=== PATIENT | female | born 1990 | race American Indian/Alaskan Native ===

== ENCOUNTER 2019-02-03 12:42 | Emergency (ER) | payer SELFPAY ==
[2019-02-03 13:13] VITALS: BP 130/88
--- NOTE | 2019-02-03 13:15 | Event Note ---
ED Screening Note Date of service: 02/03/19 Time: 13:11 ED Screening Note: This is a 28 y.o. F. that presents to the ER with SOB since this morning. PMH of asthma Patient states she ran out of inhaler and neb solution. LMP 12/19/2018 This initial assessment/diagnostic orders/clinical plan/treatment(s) is/are subject to change based on patients health status, clinical progression and re- assessment by fellow clinical providers in the ED. Further treatment and workup at subsequent clinical providers discretion. Patient/guardian urged not to elope from the ED as their condition may be serious if not clinically assessed and managed. Initial orders include:
[2019-02-03] MEDS ORDERED: IPRATROPIUM/ALBUTEROL SULFATE 3 ML AMPUL.NEB IH ONE (17:35)
[2019-02-03] MEDS ORDERED: dexAMETHasone 4 MG/ML VIAL IM ONE (17:35)
--- NOTE | 2019-02-03 18:06 | Emergency Department Report ---
ED Asthma HPI - General Chief Complaint: Dyspnea/Respdistress Stated Complaint: SOB/ASTHMA ATTACK Time Seen by Provider: 02/03/19 13:11 Source: patient Mode of arrival: Ambulatory Limitations: No Limitations - History of Present Illness Initial Comments: pt is a 28-year-old female presents the emergency room with complaints of an asthma exacerbation that began yesterday. States she ran out of her nebulizer solution and her inhaler yesterday. She states she has a dry cough. Patient denies any fever, productive cough, sore throat, earache, chest pain. She denies any other past medical history and denies any allergies to medications. She states she has a non-smoker. - Related Data Previous Rx's Medication Instructions Recorded Last Taken Type ALBUTEROL Inhaler (OR & NICU) 2 puff IH QID PRN #1 inhalation 02/03/19 Unknown Rx [ProAir HFA Inhaler] ALBUTEROL NEB's [Proventil 0.083% 2.5 mg IH TID PRN #1 box 02/03/19 Unknown Rx NEBS] ALBUTEROL Inhaler (OR & NICU) 2 puff IH QID PRN #1 inhalation 02/04/19 Unknown Rx [Proair] Azithromycin [Zithromax Z-LAUREANO] 0 mg PO DAILY #6 tab 02/04/19 Unknown Rx Benzonatate [Tessalon Perles] 100 mg PO Q8HR #30 capsule 02/04/19 Unknown Rx Ibuprofen [Motrin 800 MG tab] 800 mg PO Q8HR PRN #20 tablet 02/04/19 Unknown Rx traMADol [Ultram] 50 mg PO Q6HR PRN #10 tablet 02/04/19 Unknown Rx Allergies Allergy/AdvReac Type Severity Reaction Status Date / Time No Known Allergies Allergy Verified 02/03/19 20:56 ED Review of Systems ROS: Stated complaint: SOB/ASTHMA ATTACK Other details as noted in HPI Comment: All other systems reviewed and negative ED Past Medical Hx - Past Medical History Previous Medical History?: Yes Hx Asthma: Yes - Surgical History Past Surgical History?: No - Social History Smoking Status: Never Smoker Substance Use Type: None - Medications Home Medications: Home Medications Medication Instructions Recorded Confirmed Last Taken Type ALBUTEROL Inhaler (OR & NICU) 2 puff IH QID PRN #1 inhalation 02/03/19 Unknown Rx [ProAir HFA Inhaler] ALBUTEROL NEB's [Proventil 0.083% 2.5 mg IH TID PRN #1 box 02/03/19 Unknown Rx NEBS] ALBUTEROL Inhaler (OR & NICU) 2 puff IH QID PRN #1 inhalation 02/04/19 Unknown Rx [Proair] Azithromycin [Zithromax Z-LAUREANO] 0 mg PO DAILY #6 tab 02/04/19 Unknown Rx Benzonatate [Tessalon Perles] 100 mg PO Q8HR #30 capsule 02/04/19 Unknown Rx Ibuprofen [Motrin 800 MG tab] 800 mg PO Q8HR PRN #20 tablet 02/04/19 Unknown Rx traMADol [Ultram] 50 mg PO Q6HR PRN #10 tablet 02/04/19 Unknown Rx ED Physical Exam - General Limitations: No Limitations General appearance: alert, in no apparent distress - Head Head exam: Present: atraumatic, normocephalic - Eye Eye exam: Present: normal appearance - ENT ENT exam: Present: normal orophraynx, mucous membranes moist - Respiratory Respiratory exam: Present: wheezes (mild expiratory wheeze bilaterally). Absent : respiratory distress, rales, rhonchi, stridor, chest wall tenderness, accessory muscle use, decreased breath sounds, prolonged expiratory - Cardiovascular Cardiovascular Exam: Present: regular rate, normal rhythm, normal heart sounds. Absent: systolic murmur, diastolic murmur, rubs, gallop - Neurological Exam Neurological exam: Present: alert, oriented X3 - Psychiatric Psychiatric exam: Present: normal affect, normal mood - Skin Skin exam: Present: warm, dry, intact ED Course Vital Signs 02/03/19 02/03/19 13:11 18:32 Temperature 98.1 F Pulse Rate 82 Pulse Rate [ 82 Posterior Bilateral Throughout] Respiratory 18 Rate Respiratory 18 Rate [Posterior Bilateral Throughout] Blood Pressure 130/88 O2 Sat by Pulse 99 Oximetry ED Medical Decision Making - Medical Decision Making pt is a 28-year-old female presents the emergency room with complaints of an asthma exacerbation that began yesterday. States she ran out of her nebulizer solution and her inhaler yesterday. She states she has a dry cough. Patient denies any fever, productive cough, sore throat, earache, chest pain. She d enies any other past medical history and denies any allergies to medications. She states she has a non-smoker. vitals are normal. on exam: mild expiratory wheeze bilaterally, no rhonchi or rales. pt given duo neb and steroids and wheezing completely resolved and pts lung sounds are clear bilaterally. pt is afebrile no rhonchi or rales no signs of PNA or bronchitis. pt is afebrile, lungs are clear. Patient given prescription for nebulizer solution and an albuterol inhaler. given a list of community clinics and a good Rx card. advised patient to take medication as prescribed. follow up with a primary care doctor in the next 2-3 days. Return to the emergency room for any new or worsening symptoms. Critical care attestation.: If time is entered above; I have spent that time in minutes in the direct care of this critically ill patient, excluding procedure time. ED Disposition Clinical Impression: Asthma Qualifiers: Asthma severity: unspecified severity Asthma persistence: unspecified Asthma complication type: with acute exacerbation Qualified Code(s): J45.901 - Unspecified asthma with (acute) exacerbation Disposition: TO HOME OR SELFCARE Is pt being admited?: No Does the pt Need Aspirin: No Condition: Stable Instructions: Asthma (ED) Additional Instructions: take medication as prescribed. follow up with a primary care doctor in the next 2-3 days. Return to the emergency room for any new or worsening symptoms. Prescriptions: ALBUTEROL Inhaler (OR & NICU) [ProAir HFA Inhaler] 2 puff IH QID PRN #1 inhalation PRN Reason: Shortness Of Breath ALBUTEROL NEB's [Proventil 0.083% NEBS] 2.5 mg IH TID PRN #1 box PRN Reason: Wheezing Referrals: CONI TONEY MD [Primary Care Provider] - 2-3 Days [facility] [Outside] - 2-3 Days [facility] [Outside] - 2-3 Days Time of Disposition: 18:34 Print Language: SLOVAK
== END 2019-02-03 18:55 | disposition home or self-care (01) ==
LOC: ED 12:42
DX: J45.901 Unspecified asthma with (acute) exacerbation (principal); Z79.899 Other long term (current) drug therapy
CPT/HCPCS: 94644; 96372; 99282; J1100

== ENCOUNTER 2019-02-03 20:52 | Emergency (ER) | payer SELFPAY ==
--- NOTE | 2019-02-03 21:53 | Event Note ---
ED Screening Note Date of service: 02/03/19 Time: 21:52 ED Screening Note: This is a 28 y.o. F. that returns to the ER chest pain, SOB, and dizziness. Reports increasing dyspnea with exertion and palpitations. Patient states symptoms became worse after discharge. This initial assessment/diagnostic orders/clinical plan/treatment(s) is/are subject to change based on patients health status, clinical progression and re- assessment by fellow clinical providers in the ED. Further treatment and workup at subsequent clinical providers discretion. Patient/guardian urged not to elope from the ED as their condition may be serious if not clinically assessed and managed. Initial orders include: CXR
--- NOTE | 2019-02-03 22:22 | XRay Report ---
CHEST 1 VIEW INDICATION: chest pain, dyspnea. COMPARISON: None. FINDINGS: Support devices: None. Heart: Within normal limits. Lungs/Pleura: No acute air space or interstitial disease. Additional findings: None. IMPRESSION: No acute abnormality. Signer Name: Hari Man MD Signed: 02/03/2019 10:18 PM Workstation Name: [id number]
[2019-02-03] MEDS ORDERED: ALBUTEROL 2.5 MG/3 ML NEBU IH ONE (23:18)
[2019-02-03] MEDS ORDERED: KETOROLAC 30 MG/1 ML INJ IV ONE (23:18)
--- NOTE | 2019-02-03 23:23 | Emergency Department Report ---
HPI - General Chief Complaint: Dyspnea/Respdistress Time Seen by Provider: 02/03/19 21:52 - HPI HPI: Room 5 The pt is a 28 y/o F p/w a cc of CP. The pt was seen in this ED several hours ago and treated for asthma exacerbation. The pt states after she was discharged she developed SSCP that increases with cough and occ with inpiration. Pt admits to SOB. Pt states her cough is productive of yellow sputum. Pt denies fever. ED Past Medical Hx - Past Medical History Hx Asthma: Yes - Surgical History Past Surgical History?: No - Family History Family history: no significant - Social History Smoking Status: Never Smoker Substance Use Type: None - Medications Home Medications: Home Medications Medication Instructions Recorded Confirmed Last Taken Type ALBUTEROL Inhaler (OR & NICU) 2 puff IH QID PRN #1 inhalation 02/03/19 Unknown Rx [ProAir HFA Inhaler] ALBUTEROL NEB's [Proventil 0.083% 2.5 mg IH TID PRN #1 box 02/03/19 Unknown Rx NEBS] ALBUTEROL Inhaler (OR & NICU) 2 puff IH QID PRN #1 inhalation 02/04/19 Unknown Rx [Proair] Azithromycin [Zithromax Z-LAUREANO] 0 mg PO DAILY #6 tab 02/04/19 Unknown Rx Benzonatate [Tessalon Perles] 100 mg PO Q8HR #30 capsule 02/04/19 Unknown Rx Ibuprofen [Motrin 800 MG tab] 800 mg PO Q8HR PRN #20 tablet 02/04/19 Unknown Rx traMADol [Ultram] 50 mg PO Q6HR PRN #10 tablet 02/04/19 Unknown Rx ED Review of Systems ROS: Stated complaint: SOB Other details as noted in HPI Constitutional: denies: fever Eyes: denies: eye pain ENT: denies: throat pain Respiratory: cough, shortness of breath Cardiovascular: chest pain Endocrine: no symptoms reported Gastrointestinal: denies: abdominal pain Genitourinary: denies: dysuria Musculoskeletal: myalgia Neurological: denies: headache Physical Exam - Physical Exam Vital Signs: Vital Signs 02/03/19 02/03/19 02/03/19 20:58 21:58 23:05 Temperature 98.9 F 98.9 F 98.1 F Pulse Rate 68 68 80 Respiratory 22 18 12 Rate Blood Pressure 140/85 Blood Pressure 140/85 130/73 [Right] O2 Sat by Pulse 99 100 97 Oximetry Physical Exam: GEN: WD WN F lying on stretcher in NAD HEENT: EOMI NECK: Trachea midline LUNGS: No resp Distress. CTA CV: RRR no m/r/g ABD: S/NT/ND SKIN: No Diaphoresis NEURO: GCS 15 MS: no evidence of acute injury ED Course Vital Signs 02/03/19 02/03/19 02/03/19 20:58 21:58 23:05 Temperature 98.9 F 98.9 F 98.1 F Pulse Rate 68 68 80 Respiratory 22 18 12 Rate Blood Pressure 140/85 Blood Pressure 140/85 130/73 [Right] O2 Sat by Pulse 99 100 97 Oximetry ED Medical Decision Making - Lab Data Result diagrams: 02/03/19 22:49 02/03/19 22:49 Laboratory Tests 02/03/19 02/03/19 02/03/19 22:49 22:49 23:26 WBC 12.1 H RBC 3.92 Hgb 12.7 Hct 35.6 MCV 91 MCH 33 H MCHC 36 H RDW 13.8 Plt Count 442 H Seg Neutrophils % Measuring Clerk D-Dimer 330.84 H Sodium 139 Potassium 3.5 L Chloride 105.1 Carbon Dioxide 22 Anion Gap 15 BUN 6 L Creatinine 0.7 Estimated GFR > 60 BUN/Creatinine Ratio 9 Glucose 112 H Calcium 8.8 Total Creatine Kinase CK-MB (CK-2) CK-MB (CK-2) Rel Index Troponin T HCG, Qual 02/03/19 02/03/19 23:26 23:26 WBC RBC Hgb Hct MCV MCH MCHC RDW Plt Count Seg Neutrophils % D-Dimer Sodium Potassium Chloride Carbon Dioxide Anion Gap BUN Creatinine Estimated GFR BUN/Creatinine Ratio Glucose Calcium Total Creatine Kinase 162 H CK-MB (CK-2) < 1.0 CK-MB (CK-2) Rel Index 0.6 Troponin T < 0.010 HCG, Qual Negative - EKG Data -: EKG Interpreted by Me EKG shows normal: sinus rhythm Rate: normal - EKG Data When compared to previous EKG there are: previous EKG unavailable Interpretation: normal EKG - Radiology Data Radiology results: report reviewed (CT Chest), image reviewed (Ct Chest) [facility] [address] [place] [address] Cat Scan Report Signed Patient: NATA CHILDERS MR#: [id number] : 1990 Acct:[id number] Age/Sex: 28 / F ADM Date: 02/03/19 Loc: ED Attending Dr: Ordering Physician: TAINA RUVALCABA MD Date of Service: 02/04/19 Procedure(s): CT angio chest Accession Number(s): [id number] cc: TAINA RUVALCABA MD CTA CHEST WITH C ONTRAST INDICATION / CLINICAL INFORMATION: CP, SOB. TECHNIQUE: Axial CT images were obtained through the chest after injection of 100 mL Omnipaque 350 IV contrast. 3 plane MIP and/or 3D reconstructions were produced. All CT scans at this location are performed using CT dose reduction for ALARA by means of automated exposure control. COMPARISON: None available. FINDINGS: PULMONARY ARTERIES: No pulmonary emboli. THORACIC AORTA: No significant abnormality. HEART: No significant abnormality. CORONARY ARTERIES: No significant calcification. MEDIASTINUM / LAURIE: No significant abnormality. PLEURA: No pleural effusion. No pneumothorax. LUNGS: No acute air space or interstitial disease. ADDITIONAL FINDINGS: None. UPPER ABDOMEN: Liver appears diffusely hypodense suggesting fatty infiltration. SKELETAL STRUCTURES: No significant osseous abnormality. IMPRESSION: 1. No CT evidence for pulmonary embolism. 2. No acute pulmonary or pleural findings. 3. Possible hepatic steatosis. Signer Name: Yesenia Moreno MD Signed: 02/04/2019 12:49 AM Workstation Name: [id number] Transcribed By: DT Dictated By: Cullen Moreno MD Electronically Authenticated By: Cullen Moreno MD Signed Date/Time: 02/04/1948 DD/ TD/TT: - Differential Diagnosis bronchitis, PNA, PE, ACS Critical care attestation.: If time is entered above; I have spent that time in minutes in the direct care of this critically ill patient, excluding procedure time. ED Disposition Clinical Impression: Asthma, Bronchitis Disposition: -01 TO HOME OR SELFCARE Is pt being admited?: No Does the pt Need Aspirin: No Condition: Stable Instructions: Asthma (ED), Chronic Bronchitis (ED) Prescriptions: Ibuprofen [Motrin 800 MG tab] 800 mg PO Q8HR PRN #20 tablet PRN Reason: Pain, Moderate (4-6) ALBUTEROL Inhaler (OR & NICU) [Proair] 2 puff IH QID PRN #1 inhalation PRN Reason: Shortness Of Breath Benzonatate [Tessalon Perles] 100 mg PO Q8HR #30 capsule traMADol [Ultram] 50 mg PO Q6HR PRN #10 tablet PRN Reason: Pain Azithromycin [Zithromax Z-LAUREANO] 0 mg PO DAILY #6 tab Referrals: [facility] [Outside] - 3-5 Days Time of Disposition: 01:00
[2019-02-03 23:34] LABS: BUN/Creatinine Ratio 9; Blood Urea Nitrogen 6 mg/dL (7-17); Calcium 8.8 mg/dL (8.4-10.2); Hemolysis Index 4
[2019-02-04 00:03] LABS: Creatine Kinase MB < 1.0 ng/mL (0.0-4.0)
[2019-02-04 00:07] LABS: Hematocrit 35.6 % (30.3-42.9); Hemoglobin 12.7 gm/dl (10.1-14.3); Mean Corpuscular HGB Conc 36 % (30-34); Mean Corpuscular Volume 91 fl (79-97); Platelet Count 442 K/mm3 (140-440); Red Blood Count 3.92 M/mm3 (3.65-5.03); Red Cell Distribution Width 13.8 % (13.2-15.2)
--- NOTE | 2019-02-04 00:54 | Cat Scan Report ---
CTA CHEST WITH CONTRAST INDICATION / CLINICAL INFORMATION: CP, SOB. TECHNIQUE: Axial CT images were obtained through the chest after injection of 100 mL Omnipaque 350 IV contrast. 3 plane MIP and/or 3D reconstructions were produced. All CT scans at this location are performed usin g CT dose reduction for ALARA by means of automated exposure control. COMPARISON: None available. FINDINGS: PULMONARY ARTERIES: No pulmonary emboli. THORACIC AORTA: No significant abnormality. HEART: No significant abnormality. CORONARY ARTERIES: No significant calcification. MEDIASTINUM / LAURIE: No significant abnormality. PLEURA: No pleural effusion. No pneumothorax. LUNGS: No acute air space or interstitial disease. ADDITIONAL FINDINGS: None. UPPER ABDOMEN: Liver appears diffusely hypodense suggesting fatty infiltration. SKELETAL STRUCTURES: No significant osseous abnormality. IMPRESSION: 1. No CT evidence for pulmonary embolism. 2. No acute pulmonary or pleural findings. 3. Possible hepatic steatosis. Signer Name: Yesenia Moreno MD Signed: 02/04/2019 12:49 AM Workstation Name: [id number]
[2019-02-04 01:14] LABS: Basophils % (Manual) 0 % (0.0-1.8); Eosinophils % (Manual) 0 % (0.0-4.3); Platelet Estimate Consistent w Auto; RBC Morphology Normal; Total Cells Counted 100
[2019-02-04 01:30] VITALS: BP 102/58
== END 2019-02-04 01:25 | disposition home or self-care (01) ==
LOC: ED 20:52
DX: J40 Bronchitis, not specified as acute or chronic (principal); J45.909 Unspecified asthma, uncomplicated; Z79.899 Other long term (current) drug therapy
CPT/HCPCS: 36415; 71045; 71275; 80048; 82550; 82553; 84484; 84703; 85007; 85025; 85379; 93005; 93010; 94644; 96374; 99284; J1885; Q9967

== ENCOUNTER 2019-02-04 23:22 | Emergency (ER) | payer SELFPAY ==
[2019-02-05] MEDS ORDERED: KETOROLAC 60 MG/2 ML INJ IM ONE (01:03)
--- NOTE | 2019-02-05 01:10 | Emergency Department Report ---
- General Chief Complaint: Dyspnea/Respdistress Stated Complaint: CHEST PAIN Time Seen by Provider: 02/05/19 00:41 Source: patient, EMS Mode of arrival: Ambulatory Limitations: No Limitations - History of Present Illness Initial Comments: Patient is a 28-year-old female who presents to emergency room with complaints of URI symptoms for the last 2 days. She states that she has associated cough, rhinorrhea, chest discomfort. Patient was brought in by EMS and EMS report states that she had a very slight wheeze and was given 2.5 mg of albuterol. She denies any shortness of breath currently. She denies any fever or sick contacts. Patient states she still just has some chest discomfort to the right upper chest. pt was evaluated in the emergency department twice yesterday for the same complaint. Her first visit she was treated for her asthma with an nebulizer treatment and an injection of dexamethasone and her asthma medications were refilled. Her second visit she had a CTA of the chest which was normal and an EKG which was normal and was given medications for acute bronchitis including pain medications, Zithromax, Tessalon Perles for her cough. Patient states that her only past medical history is asthma. Denies any allergies to medications. - Related Data Previous Rx's Medication Instructions Recorded Last Taken Type ALBUTEROL Inhaler (OR & NICU) 2 puff IH QID PRN #1 inhalation 02/03/19 Unknown Rx [ProAir HFA Inhaler] ALBUTEROL NEB's [Proventil 0.083% 2.5 mg IH TID PRN #1 box 02/03/19 Unknown Rx NEBS] ALBUTEROL Inhaler (OR & NICU) 2 puff IH QID PRN #1 inhalation 02/04/19 Unknown Rx [Proair] Azithromycin [Zithromax Z-LAUREANO] 0 mg PO DAILY #6 tab 02/04/19 Unknown Rx Benzonatate [Tessalon Perles] 100 mg PO Q8HR #30 capsule 02/04/19 Unknown Rx Ibuprofen [Motrin 800 MG tab] 800 mg PO Q8HR PRN #20 tablet 02/04/19 Unknown Rx traMADol [Ultram] 50 mg PO Q6HR PRN #10 tablet 02/04/19 Unknown Rx predniSONE [Deltasone] 40 mg PO QDAY 5 Days #10 tab 02/05/19 Unknown Rx Allergies Allergy/AdvReac Type Severity Reaction Status Date / Time No Known Allergies Allergy Verified 02/03/19 20:56 ED Review of Systems ROS: Stated complaint: CHEST PAIN Other details as noted in HPI Comment: All other systems reviewed and negative ED Past Medical Hx - Past Medical History Previous Medical History?: Yes Hx Asthma: Yes - Surgical History Past Surgical History?: No - Social History Smoking Status: Never Smoker Substance Use Type: None - Medications Home Medications: Home Medications Medication Instructions Recorded Confirmed Last Taken Type ALBUTEROL Inhaler (OR & NICU) 2 puff IH QID PRN #1 inhalation 02/03/19 Unknown Rx [ProAir HFA Inhaler] ALBUTEROL NEB's [Proventil 0.083% 2.5 mg IH TID PRN #1 box 02/03/19 Unknown Rx NEBS] ALBUTEROL Inhaler (OR & NICU) 2 puff IH QID PRN #1 inhalation 02/04/19 Unknown Rx [Proair] Azithromycin [Zithromax Z-LAUREANO] 0 mg PO DAILY #6 tab 02/04/19 Unknown Rx Benzonatate [Tessalon Perles] 100 mg PO Q8HR #30 capsule 02/04/19 Unknown Rx Ibuprofen [Motrin 800 MG tab] 800 mg PO Q8HR PRN #20 tablet 02/04/19 Unknown Rx traMADol [Ultram] 50 mg PO Q6HR PRN #10 tablet 02/04/19 Unknown Rx predniSONE [Deltasone] 40 mg PO QDAY 5 Days #10 tab 02/05/19 Unknown Rx ED Physical Exam - General Limitations: No Limitations General appearance: alert, in no apparent distress - Head Head exam: Present: atraumatic, normocephalic - Eye Eye exam: Present: normal appearance - ENT ENT exam: Present: mucous membranes moist - Respiratory Respiratory exam: Present: normal lung sounds bilaterally. Absent: respiratory distress, wheezes, rales, rhonchi, stridor, chest wall tenderness, accessory muscle use, decreased breath sounds, prolonged expiratory - Cardiovascular Cardiovascular Exam: Present: regular rate, normal rhythm, normal heart sounds. Absent: systolic murmur, diastolic murmur, rubs, gallop - Neurological Exam Neurological exam: Present: alert, oriented X3 - Psychiatric Psychiatric exam: Present: normal affect, normal mood - Skin Skin exam: Present: warm, dry, intact ED Medical Decision Making - Lab Data Vital Signs 02/04/19 23:30 Temperature 98.4 F Pulse Rate 95 H Respiratory 18 Rate Blood Pressure 140/96 O2 Sat by Pulse 99 Oximetry - EKG Data EKG shows normal: sinus rhythm, axis, intervals, QRS complexes, ST-T waves Rate: normal - Medical Decision Making Patient is a 28-year-old female who presents to emergency room with complaints of URI symptoms for the last 2 days. She states that she has associated cough, rhinorrhea, chest discomfort. Patient was brought in by EMS and EMS report states that she had a very slight wheeze and was given 2.5 mg of albuterol. She denies any shortness of breath currently. She denies any fever or sick contacts. Patient states she still just has some chest discomfort to the right upper chest. pt was evaluated in the emergency department twice yesterday for the same complaint. Her first visit she was treated for her asthma with an nebulizer treatment and an injection of dexamethasone and her asthma medications were refilled. Her second visit she had a CTA of the chest which was normal and an EKG which was normal and was given medications for acute bronchitis including pain medications, Zithromax, Tessalon Perles for her cough. Patient states that her only past medical history is asthma. Denies any allergies to medications. vitals are stable. EKG is normal with normal HR. lungs are clear bilaterally no w/r/r. given prescription for prednisone. advised please take medication as prescribed. Please continue to take the medications were prescribed yesterday. please use your nebulizer treatments 3 times a day. Please follow-up with your primary care doctor in the next 2-3 days for management of your asthma. Return to the emergency room for any new or worsening symptoms. Critical care attestation.: If time is entered above; I have spent that time in minutes in the direct care of this critically ill patient, excluding procedure time. ED Disposition Clinical Impression: Bronchitis, Chest discomfort Asthma Qualifiers: Asthma severity: unspecified severity Asthma persistence: unspecified Asthma complication type: uncomplicated Qualified Code(s): J45.909 - Unspecified asthma, uncomplicated Disposition: DC-01 TO HOME OR SELFCARE Is pt being admited?: No Does the pt Need Aspirin: No Condition: Stable Instructions: Asthma (ED), Chronic Bronchitis (ED) Additional Instructions: please take medication as prescribed. Please continue to take the medications were prescribed yesterday. please use your nebulizer treatments 3 times a day. Please follow-up with your primary care doctor in the next 2-3 days for management of your asthma. Return to the emergency room for any new or worsening symptoms. Prescriptions: predniSONE [Deltasone] 40 mg PO QDAY 5 Days #10 tab Referrals: [facility] [Provider Group] - 2-3 Days Time of Disposition: 01:11 Print Language: CAMEROONIAN
[2019-02-05 07:01] VITALS: BP 140/96
== END 2019-02-05 02:15 | disposition home or self-care (01) ==
LOC: ED 23:22
DX: J45.909 Unspecified asthma, uncomplicated (principal); J06.9 Acute upper respiratory infection, unspecified; Z79.899 Other long term (current) drug therapy; Z79.1 Long term (current) use of non-steroidal anti-inflammatories (NSAID)
CPT/HCPCS: 93005; 93010; 96372; 99283; J1885